=== PATIENT | male | born 1970 | race Caucasian/White ===

== ENCOUNTER 2024-01-29 18:18 | Emergency (ER) | payer OTHER, SELFPAY ==
[2024-01-29 18:19] VITALS: BP 137/91; PULSE 91; RESP 17; TEMP 36.6; O2SAT 96
--- NOTE | 2024-01-29 18:49 | W.ED.GENAD ---
Discharge Plan Disposition [facility] Disposition: [facility] Condition: Stable Discharge Details Clinical Impression: Encounter for medical screening examination Primary Care Provider: Unknown,Unknown ED Provider: Bonifacio Morelos Home Meds and New Rx's Prescriptions: Continued propranolol 10 mg tablet 10 mg PO ONCE sertraline 50 mg tablet 50 mg PO DAILY furosemide 20 mg tablet 20 mg PO TID spironolactone 50 mg tablet 50 mg PO TID Discharge Instructions Instructions: Alcohol Intoxication ED Additional Instructions: You were seen in the emergency department for clearance for corrections facility. You are intoxicated but speaking in complete sentences without slurring her speech and have no coordination deficits, you have no history of severe alcohol withdrawals, delirium tremens or alcoholic withdrawal seizures. Please present back to the ED from correctional facility for any severe alcohol withdrawal symptoms. HPI General Date/Time Provider Initiated Documentation: 01/29/24 18:27. HPI Narrative: 54 year-old male presents to ED today by [facility] custody with a chief complaint of needing clearance for skilled nursing- patient is highly intoxicated with a breathalyzer of 0.37 but is speaking in complete sentences, ambulating, no coordination deficits with onset of multiple alcohol related incidents this week. Quality described as just feels fine, no trauma or pain anywhere, no radiation to history of withdrawal seizures, severe withdrawal symptoms- states he wakes normally each day, eats breakfast and lunch without issue, doesn't usually start drinking until the afternoon. Severity is described as mild. Palliating factors include nothing specific. Provoking factors include nothing specific. Patient not anticoagulated. Related Data Home Medications ?Medication ?Instructions ?Recorded ?Confirmed furosemide 20 mg tablet 20 mg PO TID 01/29/24 01/29/24 propranolol 10 mg tablet 10 mg PO ONCE 01/29/24 01/29/24 sertraline 50 mg tablet 50 mg PO DAILY 01/29/24 01/29/24 spironolactone 50 mg tablet 50 mg PO TID 01/29/24 01/29/24 Allergies Allergy/AdvReac Type Severity Reaction Status Date / Time No Known Allergies Allergy Unverified 01/29/24 18:32 General Stated Complaint: GenMedical SACHI: 3 Review of Systems All systems reviewed & are unremarkable except as noted in HPI and below Exam Narrative Exam Narrative: GENERAL APPEARANCE: Well-nourished, non-toxic, awake and alert, atraumatic, no acute distress. SKIN: Warm, pink, dry, intact, without rashes/lesions/ulcerations. HEAD: Normocephalic, atraumatic, normal hair distribution for gender/age. EYES: Normal conjunctiva, no exudates on lids/lashes. ENT: Nares patent, no circumoral cyanosis, no facial swelling NECK: Supple, trachea midline, painless cervical ROM. LUNGS/CHEST: Lungs CTA bilaterally, non-labored respirations, normal A/P diameter, symmetrical expansion, no chest wall deformity HEART (CV/PV): Regular rate and rhythm without murmur, no peripheral edema, no JVD. ABDOMEN: Soft, non-distended, no guarding. MSK: Normal ROM, no swelling/deformity to bilateral UEs or LEs, moving all extremities without weakness, no cyanosis, spine midline without tenderness, normal curvature. NEURO: Mental Status AAOx4 - alert to person, place, time, events No facial droop, no forehead involvement. Motor: No focal weakness - strength 5/5 in bilateral UEs and LEs, proximal and distal, symmetric. Sensory: sensation intact to light touch globally. Gait normal: patient ambulated without ataxia into ED room. PSYCH: euthymic, cooperative, pleasant, appropriate speech Course Vital Signs Vital signs: Vital Signs Temperature 36.6 C 01/29/24 18:19 Pulse 91 H 01/29/24 18:19 Respiratory Rate 17 01/29/24 18:19 Blood Pressure 137/91 H 01/29/24 18:19 Pulse Oximetry 96 01/29/24 18:19 Temperature 36.6 C 01/29/24 18:19 Temperature Source Oral 01/29/24 18:19 Pulse 91 H 01/29/24 18:19 Respiratory Rate 17 01/29/24 18:19 Respiratory Effort Normal 01/29/24 18:37 Respiratory Depth Normal 01/29/24 18:37 Respiratory Pattern Normal 01/29/24 18:37 Blood Pressure 137/91 H 01/29/24 18:19 Blood Pressure Position Sitting 01/29/24 18:19 Pulse Oximetry 96 01/29/24 18:19 Oxygen Delivery Method Room Air 01/29/24 18:19 Oxygen Flow Rate 0 01/29/24 18:19 Medical Decision Making This dictation utilizes [id number] dictation software and may contain unedited grammatical errors. 54 year-old male presents to ED today by PD custody with a chief complaint of needing clearance for skilled nursing- patient is highly intoxicated with a breathalyzer of 0.37 but is speaking in complete sentences, ambulating, no coordination deficits with onset of multiple alcohol related incidents this week. Quality described as just feels fine, no trauma or pain anywhere, no radiation to history of withdrawal seizures, severe withdrawal symptoms- states he wakes normally each day, eats breakfast and lunch without issue, doesn't usually start drinking until the afternoon. Severity is described as mild. Palliating factors include nothing specific. Provoking factors include nothing specific. Patients' medical history: Noncontributory. Family and social history: States he drinks daily, denies other illicit substance use. Pertinent exam findings / vital signs include nonlabored respirations, no coordination deficits, not slurring his speech, appears clinically sober. Differential / pathologies of concern include alcohol intoxication, low risk for severe withdrawal without any history of. Diagnostic studies of: -None. Interventions of: -Clearance for PD to bring to skilled nursing. ED Course/Assessment/Plan: Pleasantly intoxicated 54-year-old male presents for clearance for custody, he has no acute complaints, no trauma, he is a daily drinker but denies any severe withdrawal symptoms, I think it is low risk that he would severely withdraw and he does have somebody monitoring him, the patient is agreement with this plan. PD will have skilled nursing monitoring we will send him back for any severe withdrawal. Findings not consistent with high risk for severe withdrawal. Disposition of encounter for medical screening examination. Patient verbalized understanding of the plan and return to ED criteria and engaged in shared decision making. Medical Records Medical records reviewed: Yes I reviewed the patient's medical records. Quality:SDOH Health Related Social Needs: No Data to Display PFSH All Active Problems (Updated 01/29/24 @ 18:53 by TOMAS Reese) Encounter for medical screening examination (Acute) Social History Smoking risk assessment performed?: No PAWSS Have you Been Recently Intoxicated or Drunk Within the Last 30 days?: Yes Have you Ever Experienced Previous Episodes of Alcohol Withdrawal?: Unable to Obtain Have you ever Experienced Withdrawal Seizures?: Unable to Obtain Have you ever Experienced Delirium Tremens(DT)s?: Unable to Obtain Have you ever undergone Alcohol Rehabilitation Treatment (i.e, inpt ot outpatient treatment programs)?: Unable to Obtain Have you ever Experienced Blackouts?: Unable to Obtain Have you ever Combined Alcohol with other Downers within the last 90 days?: Unable to Obtain Have you ever Combined Alcohol with any other Substance of Abuse during the last 90 days?: Unable to Obtain Positive Blood Alcohol level on Presentation? [PCS.BAL]: Unable to Obtain Evidence of Increased Autonomic Activity (i.e. HR>120, tremor, sweating, agitation, nausea)?: Unable to Obtain Result: 1
== END 2024-01-29 18:59 ==
LOC: ER 19:06
PROVIDERS: Emergency Provider Physician Assistant
DX: F10.920 Alcohol use, unspecified with intoxication, uncomplicated
CPT/HCPCS: 99285; 99283